=== PATIENT | male | born 1990 ===

== ENCOUNTER 2021-03-07 15:13 | Emergency (ER) | payer OTHER ==
[~2021-03-07] VITALS: Ht 182.9 cm; Wt 70.3 kg
== END 2021-03-07 16:35 | disposition left against medical advice (07) ==
LOC: ER 15:13
DX: H92.02 Otalgia, left ear (principal); Z53.21 Procedure and treatment not carried out due to patient leaving prior to being seen by health care provider
CPT/HCPCS: 99282